=== PATIENT | male | born 1955 | race Caucasian/White ===

== ENCOUNTER 2022-10-24 18:20 | Observation (INO) | payer OTHER ==
[2022-10-24] MEDS: Nitroglycerin 0.4 MG Tab.SL SL PRN ×2 (18:30→18:35)
[2022-10-24] MEDS ORDERED: Aspirin 81 MG Tab.Chew PO ONE (18:56)
[2022-10-24] MEDS ORDERED: Morphine 2 MG/ML SYRINGE IVPUSH ONE ×2 (19:01→19:23)
[2022-10-24 19:05] LABS: ESTIMATED GFR 58 mL/min (>60); TROPONIN I HIGH SENSITIVITY 44.4 pg/ml (<=60.4)
[2022-10-24] MEDS ORDERED: Albuterol/Ipratropium 3.0-0.5 MG/3 ML Neb Soln NEB ONE (19:15)
[2022-10-24] MEDS ORDERED: Sodium Chloride 0.9% 50 ML SDV FLUSH ONE (20:12)
[2022-10-24] MEDS ORDERED: Iopamidol 755 Mg/ML 100 ML Bottle IV SCH (20:15)
[2022-10-24] MEDS ORDERED: Albuterol 0.083% 2.5 MG/3 ML Neb Soln NEB PRN (22:10)
[2022-10-24] MEDS ORDERED: Furosemide 40 MG/4 ML VIAL IVPUSH ONE (22:37)
[2022-10-24] MEDS ORDERED: Furosemide 40 MG/4 ML VIAL ONE (23:23)
[2022-10-24] MEDS: predniSONE 20 MG Tab PO SCH (23:36)
[2022-10-24] MEDS: Albuterol/Ipratropium 3.0-0.5 MG/3 ML Neb Soln NEB SCH (23:37)
[2022-10-24] MEDS: Doxycycline 100 MG Cap PO SCH (23:40)
[2022-10-24 23:42] LABS: ESTIMATED GFR 55 mL/min (>60)
[2022-10-25] MEDS ORDERED: Heparin Sodium/D5W 25,000 UNITS/500 ML BAG IV SCH (00:45)
[2022-10-25] MEDS ORDERED: Heparin Sodium/D5W 500 ML ONE (01:11)
[2022-10-25] MEDS: Heparin Sodium 5,000 Units/ML Vial IVPUSH ONE ×2 (01:29→01:34)
[2022-10-25] MEDS ORDERED: Furosemide 40 MG/4 ML VIAL IVPUSH ONE (04:00)
[2022-10-25] MEDS: Albuterol/Ipratropium 3.0-0.5 MG/3 ML Neb Soln NEB SCH ×2 (06:34→06:41)
[2022-10-25] MEDS ORDERED: Aspirin 81 MG Tab.Chew ONE (07:31)
[2022-10-25] MEDS ORDERED: Carvedilol 3.125 MG Tab ONE (07:31)
[2022-10-25] MEDS ORDERED: Spironolactone 25 MG Tab ONE (07:31)
[2022-10-25] MEDS: predniSONE 20 MG Tab PO SCH (07:36)
[2022-10-25] MEDS: Doxycycline 100 MG Cap PO SCH (07:37)
[2022-10-25] MEDS ORDERED: SPIRONOLACTONE 25 MG PO SCH (08:00)
[2022-10-25] MEDS ORDERED: Non-Formulary Medication 1 Each (Sacubitril/Valsartan [Entresto 97 Mg-103 Mg Tablet] 1 EAC PO SCH (08:00)
[2022-10-25] MEDS ORDERED: ASPIRIN 81 MG PO SCH (08:00)
[2022-10-25] MEDS ORDERED: CARVEDILOL 3.125 MG PO SCH (08:00)
[2022-10-25] MEDS ORDERED: Non-Formulary Medication 1 Each (Atorvastatin [Lipitor] 80 MG Tablet) PO SCH (20:00)
== END 2022-10-25 11:00 ==
LOC: LB.ED 18:20 → LB.MS 21:07 → UNDOADMOB 21:20 → UNDODISOB 10-25 11:00
PROVIDERS: ADMIT Physician Assistant; ATTEND Physician Assistant
DX: I50.9 Heart failure, unspecified (principal); J43.9 Emphysema, unspecified; F17.210 Nicotine dependence, cigarettes, uncomplicated; J90 Pleural effusion, not elsewhere classified; J98.11 Atelectasis; K44.9 Diaphragmatic hernia without obstruction or gangrene; M51.34 Other intervertebral disc degeneration, thoracic region; I44.0 Atrioventricular block, first degree; I45.10 Unspecified right bundle-branch block; Z79.899 Other long term (current) drug therapy; Z79.82 Long term (current) use of aspirin; Z20.822 Contact with and (suspected) exposure to COVID-19
CPT/HCPCS: 36415; 71045; 71260; 80048; 80053; 83880; 84484; 85025; 85379; 85610; 85730; 87635; 93005; 96365; 96366; 96375; 99285; A0425; A0429; A9270; G0378; J1644; J1940; J2270; J7512; Q9967; 93010; J7620; U0002